=== PATIENT | female | born 2000 | race Caucasian/White ===

== ENCOUNTER 2024-02-05 10:06 | Emergency (ER) | payer OTHER, SELFPAY ==
[2024-02-05] VITALS (8 sets, daily range): BP systolic 107–135; BP diastolic 53–96; BMI 18.9
[2024-02-05] MEDS: ZOFRAN 4 MG IV (11:20)
[2024-02-05] MEDS: NSS 1000 IV ×2 (11:21→13:41)
--- NOTE | 2024-02-05 11:26 | ED.GENMED ---
History of Present Illness
General
Chief Complaint: Abdominal Symptoms
Source: patient
Exam Limitations: none
Time Seen by Provider: 02/05/24 11:18
History of Present Illness
History of Present Illness:
23-year-old female presents with onset of nausea vomiting and diarrhea this morning. She states she cannot stop not vomiting. She denies abdominal pain. No fever. No known sick contacts. She denies any blood in the vomit or the stool. She
drinks 2 cups of coffee a day denies alcohol use but does smoke marijuana regularly. Last use was last evening.
Phy Exam
Physical Exam
Physical Exam:
General: Pale appearing female no acute respiratory distress
HEENT: Normocephalic atraumatic mucosa dry neck supple
Heart: Regular rate and rhythm no murmurs
Lungs: Clear no wheeze or rales
Abdomen is soft nontender nondistended no guarding or rebound normal bowel sounds extremities: No cyanosis
Course
Orders/Labs/Results
Orders:
Orders
02/05/24 11:11
Test Result ONCE
02/05/24 11:20
Ondansetron Injectable [Zofran] 4 mg .ROUTE .STK-MED ONE
Ondansetron Injectable [Zofran] 4 mg IV NOW STA
02/05/24 11:21
Complete Blood Count/With Diff Urgent
Comprehensive Metabolic Panel Urgent
HCG, Serum Qualitative Screen Urgent
Lipase Urgent
0.9% Sodium Chloride 1000 ml [Nss] 1,000 ml IV BOLUS
02/05/24 13:35
0.9% Sodium Chloride 1000 ml [Nss] 1,000 ml IV BOLUS
Metoclopramide [Reglan] 10 mg IV NOW STA
02/05/24 14:10
Electrocardiogram (*1) Urgent
Reason for Study: QTc Monitoring
Electrocardiogram (*1) Urgent
Reason for Study: Abdominal Pain
EKG- Treatment ONCE
EKG- Treatment ONCE
02/05/24 14:26
Lorazepam [Ativan] 1 mg IV NOW STA
Abnormal Lab Results
02/05/24
11:21
WBC 17.9 H 10^3/uL
(4.8-10.8)
MCH 31.2 H pg
(27.0-31.0)
Abs Immat Gran (auto) 0.1 H 10^3/uL
(0-0.05)
Absolute Neuts (auto) 16.1 H 10^3/uL
(1.4-6.5)
Absolute Lymphs (auto) 1.1 L 10^3/uL
(1.2-3.4)
Immature Gran % 0.7 H %
(0-0.5)
Neutrophils % 89.5 H %
(42.2-75.2)
Lymphocytes % 6.1 L %
(20.5-51.1)
Chloride 110 H mmol/L
(98-107)
Carbon Dioxide 18 L mmol/L
(22-30)
Glucose 170 H mg/dl
(70-99)
02/05/24 11:21
02/05/24 11:21
Vital Signs
Initial and Last Documented VS:
Initial Vital Signs
Pulse Resp BP Pulse Ox
91 16 125/87 98
02/05/24 10:29 02/05/24 10:29 02/05/24 10:29 02/05/24 10:29
Last Documented Vital Signs
Pulse Resp BP Pulse Ox
103 24 112/53 96
02/05/24 16:00 02/05/24 16:00 02/05/24 16:00 02/05/24 16:00
MDM/Problems Addressed
Differential Diagnosis Includes:
Nausea vomiting diarrhea. Consider viral illness versus gastritis versus cyclical vomiting. Abdomen exam benign. considered imaging however not indicated. Abdomen exam is benign.
Labs pending hydration ordered Zofran ordered.
*Critical Care Note
Total Time (30-74mins, 75-104mins- exclusive of procedures): Not Applicable
Update Note
Update Note:
Patient reevaluated after multiple medicine given here. She is now resting comfortably no nausea. She is tolerating oral fluids. Will send patient home on Zofran. Suspect either viral illness or hyperemesis
ED Attending Note
-
Portions of this chart may have been created with voice recognition software.� Occasional wrong word or��sound alike� substitutions may have occurred due to the inherent limitations of voice recognition software.
Discharge Plan
Departure
Patient Disposition: Home (Routine Discharge)
Date of Disposition: 02/05/24
Time of Disposition: 17:19
Patient with high blood pressure during this ER visit?: No
Discharge Problem:
Nausea & vomiting
Prescriptions:
New
promethazine 25 mg tablet
25 mg PO TID PRN (Reason: nausea and vomiting) Qty: 10 0RF
Referrals:
NONE,* [Family Provider] -
Activity Restrictions/Additional Instructions:
Stay hydrated. Use plenty clear liquids. Return for worsening symptoms otherwise follow-up with family doctor
Interventions
Interventions:
*Risk Screen - Suicide Last Done: 02/05/24 11:16
*General Assessment Last Done: 02/05/24 11:16
*Neglect/Abuse Screening Last Done: 02/05/24 11:16
ED- Fall Risk Assessment Last Done: 02/05/24 11:42
*ED COVID-19 Vaccine History Last Done: 02/05/24 10:29
RI-Kbyqvq-Fjcesmphbm Assessment Last Done: 02/05/24 11:16
Discharge Date and Time
Print Language: GUAMANIAN
[2024-02-05 11:40] LABS: % Basophils 0.4 % (0-2); % Eosinophils 0.1 % (0-6); % Immature Granulocytes 0.7 % (0-0.5); % Lymphocytes 6.1 % (20.5-51.1); % Monocytes 3.2 % (1.7-9.3); % Neutrophils 89.5 % (42.2-75.2); Absolute Basophils 0.1 10^3/uL (0-0.2); Absolute Immature Granulocytes 0.1 10^3/uL (0-0.05); Absolute Lymphocytes 1.1 10^3/uL (1.2-3.4); Absolute Monocytes 0.6 10^3/uL (0.1-0.6); Absolute Neutrophils 16.1 10^3/uL (1.4-6.5); Hematocrit 38.4 % (37.0-47.0); Hemoglobin 13.6 g/dL (12.0-16.0); Mean Corp Hgb Conc. 35.4 g/dL (33.0-37.0); Mean Corpuscular Hgb 31.2 pg (27.0-31.0); Mean Corpuscular Volume 88.1 fL (81.0-99.0); Mean Platelet Volume 9.4 fL (7.4-10.4); Nucleated Red Blood Cells % 0 %; Platelet Count 363 10^3/uL (130-400); Red Blood Cell Count 4.36 10^6/uL (4.20-5.40); Red Cell Dist. Width 12.8 % (11.5-14.5); White Blood Cell Count 17.9 10^3/uL (4.8-10.8)
[2024-02-05 11:44] LABS: HCG, Serum Qualitative Screen Negative
[2024-02-05 11:48] LABS: ALT (SGPT) 17 U/L (0-35); AST (SGOT) 23 U/L (14-36); Albumin 4.9 g/dl (3.5-5.0); Alkaline Phosphatase 98 U/L (38-126); Blood Urea Nitrogen 9 mg/dl (7-17); Calcium 10.2 mg/dl (8.4-10.2); Carbon Dioxide 18 mmol/L (22-30); Chloride 110 mmol/L (98-107); Estimated Creatinine Clearance 113 ml/min; Glucose 170 mg/dl (70-99); Potassium 4.1 mmol/L (3.5-5.1); Sodium 140 mmol/L (135-145); Total Bilirubin 0.7 mg/dl (0.2-1.3); Total Protein 7.4 g/dl (6.3-8.2); eGFR > 60.00
[2024-02-05 12:16] LABS: Lipase 55 U/L (23-300)
[2024-02-05] MEDS: REGLAN 10 MG IV (13:40)
[2024-02-05] MEDS: ATIVAN 1 MG IV (14:30)
== END 2024-02-05 18:00 | disposition home or self-care (01) ==
LOC: EMR 10:06
PROVIDERS: Emergency Medicine; EMERGENCY PHYSICIAN Emergency Medicine
DX: R11.2 Nausea with vomiting, unspecified (principal)
CPT/HCPCS: 99284; 96374; 96375 ×2; 96361 ×2; 80053; 83690; 84703; 85025; 93005

== ENCOUNTER 2024-02-11 06:23 | Emergency (ER) | payer OTHER, SELFPAY ==
[2024-02-11 06:38] VITALS: BP 125/95
--- NOTE | 2024-02-11 07:07 | ED.GENMED ---
History of Present Illness
General
Chief Complaint: Abdominal Symptoms
Source: patient
Exam Limitations: none
Time Seen by Provider: 02/11/24 06:58
Nursing documentation reviewed up to this point in time: agreed with
History of Present Illness
History of Present Illness:
23-year-old female with history of cyclical vomiting, marijuana use, anxiety/depression, was here last 4 days ago for similar symptoms. She has had marijuana since last admit. She states she started vomiting at 3 AM this morning last time was a
couple minutes ago, she took a p.o. Compazine but threw it up. She denies abdominal pain. She has had some diarrhea. Denies fever or chills.
Past History
Past History
ED Past Medical History: Psychiatric (Anxiety depression, is under the care of a psychiatrist and a therapist)
ED Past Surgical History: None
Social History
Drug: Marijuana
Personal: Single
Review of Systems
Review of Systems
Allergies reviewed?: Yes
All Other Systems: ROS reviewed and negative except as documented in HPI and ROS
Constitutional: Denies fever
Respiratory: Denies trouble breathing
Cardiac: Denies chest pain
ABD/GI: Reports nausea, vomiting and diarrhea; Denies abdominal pain
: Denies dysuria or difficulty voiding
Musculoskeletal: Reports no symptoms
Skin: Reports no symptoms
Neurological: Reports no symptoms
Phy Exam
Physical Exam
Physical Exam:
GENERAL: Actively retching. A&Ox3.
CONSTITUTIONAL: Afebrile.
EYES: clear, conjunctivae normal
ENMT: moist mucus membranes, Pharynx nl
RESPIRATORY: Regular respirations, nonlabored, lungs clear.
CARDIOVASCULAR: Regular rate and rhythm, no murmurs, no rubs.
GI: Soft, nontender, normal BS
MUSCULOSKELETAL: Moves with ease. Well perfused.
SKIN: Warm, dry, pink
PSYCH: Normal mood and affect. Well kept, interactive and appropriate
NEUROLOGIC: Awake, alert and oriented. No focal neurological deficits
Course
Orders/Labs/Results
Orders:
Orders
02/11/24 07:06
0.9% Sodium Chloride 1000 ml [Nss] 1,000 ml IV BOLUS
Diphenhydramine [Benadryl] 50 mg IV NOW STA
Prochlorperazine [Compazine] 10 mg IV NOW STA
Vital Signs
Initial and Last Documented VS:
Initial Vital Signs
Temp Pulse Resp BP Pulse Ox
98.1 F 76 20 125/95 95
02/11/24 06:38 02/11/24 06:38 02/11/24 06:38 02/11/24 06:38 02/11/24 06:38
Last Documented Vital Signs
Temp Pulse Resp BP Pulse Ox
98.1 F 84 16 122/54 99
02/11/24 06:38 02/11/24 09:48 02/11/24 09:48 02/11/24 09:48 02/11/24 09:48
MDM/Problems Addressed
Differential Diagnosis Includes:
Cyclical vomiting, cannabinoid hyperemesis
MDM/Problems Addressed:
23-year-old female with history of cyclical vomiting, marijuana use, anxiety/depression, was here last 4 days ago for similar symptoms. She has had marijuana since last admit. She states she started vomiting at 3 AM this morning last time was a
couple minutes ago, she took a p.o. Compazine but threw it up. She denies abdominal pain. She has had some diarrhea. Denies fever or chills.
I do not suspect any acute abdominal pathology such as pancreatitis as her abdomen is benign and she denies abdominal pain.
Afebrile, actively retching at this time
She is under psychiatric care and therapy. She states she is working on stopping the marijuana.
8:00 AM
Patient is resting quietly with her eyes closed.
9:00 AM
Pt feeling much better, denies nausea. Drinking lauren makayla
Pt requests rx for Zofran, EKG of 02/04 shows normal QT interval
9:30 a.m.
Continues to feel well, tolerating fluids
Wants to go home.
Rx for Zofran sent to her pharmacy
*Critical Care Note
Total Time (30-74mins, 75-104mins- exclusive of procedures): Not Applicable
ED Attending Note
-
Portions of this chart may have been created with voice recognition software.� Occasional wrong word or��sound alike� substitutions may have occurred due to the inherent limitations of voice recognition software.
Discharge Plan
Departure
Patient Disposition: Home (Routine Discharge)
Date of Disposition: 02/11/24
Time of Disposition: 09:34
Patient with high blood pressure during this ER visit?: No
Condition: Good
Discharge Problem:
Nausea & vomiting
Instructions: Nausea and Vomiting, Adult (DC), Cannabis hyperemesis syndrome
Prescriptions:
New
ondansetron 4 mg tablet,disintegrating
4 mg PO Q8H PRN (Reason: nausea and vomiting) 5 Days Qty: 15 0RF
No Action
promethazine 25 mg tablet
25 mg PO TID PRN (Reason: nausea and vomiting) Qty: 10 0RF
Referrals:
NONE,* [Family Provider] -
Activity Restrictions/Additional Instructions:
As we discussed, I sent a prescription to your pharmacy for Zofran.
Interventions
Interventions:
*Risk Screen - Suicide Last Done: 02/11/24 07:20
*General Assessment Last Done: 02/11/24 06:38
*Neglect/Abuse Screening Last Done: 02/11/24 06:38
*Nursing Disposition Last Done: 02/11/24 09:48
TD-Yzqxyw-Zoyjotoija Assessment Last Done: 02/11/24 07:20
Discharge Date and Time
Discharge Date/Time: 02/11/24 09:55
Print Language: GUAMANIAN
[2024-02-11] MEDS: COMPAZINE 10 MG IV (07:20)
[2024-02-11] MEDS: NSS 1000 IV (07:21)
[2024-02-11] MEDS: BENADRYL 50 MG IV (07:21)
[2024-02-11 08:30] VITALS: BP 128/76
[2024-02-11 09:48] VITALS: BP 122/54
== END 2024-02-11 09:55 | disposition home or self-care (01) ==
LOC: EMR 06:23
PROVIDERS: EMERGENCY PHYSICIAN Student in an Organized Health Care Education/Training Program
DX: R11.2 Nausea with vomiting, unspecified (principal); F12.90 Cannabis use, unspecified, uncomplicated; F41.9 Anxiety disorder, unspecified; F32.A Depression, unspecified
CPT/HCPCS: 99284; 96374; 96375